=== PATIENT | female | born 1935 | race Caucasian/White ===

== ENCOUNTER → 2024-01-15 11:08 | Outpatient (REF) | payer MEDICARE, SELFPAY | LOC: RAD 11:08 | PROVIDERS: ATTENDING PHYSICIAN Family Medicine | DX: S32.000A Wedge compression fracture of unspecified lumbar vertebra, initial encounter for closed fracture (principal) | CPT/HCPCS: 72110 ==

== ENCOUNTER → 2024-12-08 14:31 | Outpatient (REF) | payer MEDICARE, SELFPAY | LOC: HWRAD 14:31 | PROVIDERS: ATTENDING PHYSICIAN Family Medicine | DX: M54.9 Dorsalgia, unspecified (principal) | CPT/HCPCS: 72110 ==

== ENCOUNTER → 2024-12-09 16:35 | Outpatient (REF) | payer MEDICARE, SELFPAY | LOC: RAD 16:35 | PROVIDERS: ATTENDING PHYSICIAN Family Medicine | DX: N20.0 Calculus of kidney (principal); M54.59 Other low back pain | CPT/HCPCS: 74176 ==